=== PATIENT | male | born 1980 ===

== ENCOUNTER 2018-10-13 04:20 | Emergency (ER) | payer OTHER ==
[2018-10-13] MEDS ORDERED: CALCIUM CHLOR(10%) 100MG/ML 10ML SYRINGE IV ONE (04:21)
[2018-10-13] MEDS ORDERED: EPINEPHrine HCL 1 MG/10 ML SYRG IV ONE (04:21)
[2018-10-13] MEDS ORDERED: SODIUM BICARBONATE 8.4% INJ 50ML SYRINGE IV ONE (04:21)
[2018-10-13] MEDS ORDERED: NOREPINEPHRINE 8 MG/250ML KIT 250 ML IV ONE (04:34)
[2018-10-13] MEDS ORDERED: EPINEPHrine HCL 1 MG/10 ML SYRG ONE (04:52)
[2018-10-13] MEDS ORDERED: SODIUM BICARBONATE 8.4 % INJ 50ML VIAL IV ONE (05:25)
[2018-10-13 05:43] VITALS: BP 62/21
[2018-10-13] MEDS ORDERED: EPINEPHrine HCL 0 ML IV ONE (05:46)
[2018-10-13] MEDS ORDERED: NOREPINEPHRINE 8 MG/250ML KIT 250 ML IV SCH (07:04)
== END 2018-10-13 08:26 | disposition expired ==
LOC: EDBD 04:20 → ER 04:20
DX: I46.9 Cardiac arrest, cause unspecified (principal)
CPT/HCPCS: 31500; 32551; 36430; 71045; 86900; 86901; 86920; 92950; 99291; J0171; P9016